=== PATIENT | female | born 1980 | race Caucasian/White ===

== ENCOUNTER 2020-06-10 09:46 | Emergency (ER) | payer BC, SELFPAY ==
[2020-06-10 09:47] VITALS: BP 146/98; PULSE 84; RESP 18; TEMP 36.1; O2SAT 100; BMI 22.7
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
[2020-06-10] MEDS: Acetaminophen 500 MG Tablet 1000 MG PO (10:38)
[2020-06-10 11:03] LABS: Absolute Lymphocyte Count 1.54 X10^3/uL (0.83-4.51); Basophil# 0.04 X10^3/uL; Basophil% 0.6 % (0-1); Eosinophils% 1.6 % (0-5); Hematocrit 41.5 % (37-47); Hemoglobin 13.6 g/dL (12.0-15.0); Lymphocyte # 1.54 X10^3/ul (4.0); Lymphocyte % 24.2 % (19-41); Mean Corp Hgb Conc 32.8 g/dL (32-36); Mean Corpuscular Hgb 31.4 pg (27.0-32.0); Mean Corpuscular Volume 95.8 fL (81-99); Mean Platelet Vol. 12.7 fl (6.2-12.0); Monocyte# 0.66 X10^3/uL; Monocyte% 10.4 % (0-10); NRBC Flagged by Analyzer 0 % (0-5); Neutrophil # 3.99 X10^3/uL (2.7-7.7); Neutrophil % 62.6 % (47-70); Platelet Count 191 K/mm3 (150-450); RBC Distribution Width CV 12.8 % (11.6-14.6); RBC Distribution Width SD 45.6 fl (35.1-43.9); Red Blood Count 4.33 M/mm3 (4.2-5.4); White Blood Count 6.4 K/mm3 (4.4-11.0)
[2020-06-10 11:03] LABS: Internal QC Validated? YES +Cl - CLEAR BKGD
[2020-06-10 11:05] LABS: Pregnancy, Urine Negative Negative
[2020-06-10 11:26] LABS: Anion Gap 5 (5-15); BUN 6 mg/dL (7-18); Calcium,Total 8.9 mg/dL (8.5-10.1); Chloride 108 mmol/L (98-107); Creatinine, Serum 0.85 mg/dL (0.55-1.02); EST Glomerular Filtration Rate 79 mL/min (>60); Est Glom Filt Rate - Afr Amer 96 mL/min (>60); Glucose 104 mg/dL (74-106); Potassium 3.5 mmol/L (3.5-5.1); Sodium Level 139 mmol/L (136-145)
[2020-06-10 13:53] VITALS: BP 125/78; PULSE 67; RESP 17; O2SAT 100
== END 2020-06-10 13:53 | disposition home or self-care (01) ==
PROVIDERS: Emergency Provider Emergency Medicine
DX: Z04.71 Encounter for examination and observation following alleged adult physical abuse (principal); R42 Dizziness and giddiness; M54.2 Cervicalgia; F17.200 Nicotine dependence, unspecified, uncomplicated
CPT/HCPCS: 70496; 70498; 80048; 81025; 85025; 99282; Q9967; A4216